=== PATIENT | female | born 1985 | race Hispanic/Latino ===

== ENCOUNTER 2025-05-20 12:56 | Emergency (ER) | payer BC, MEDICAID ==
[~2025-05-20] VITALS: Ht 160 cm; Wt 108.9 kg
[2025-05-20 13:00] VITALS: BP 121/58; PULSE 71; RESP 18; TEMP 98.2; O2SAT 98
--- NOTE | 2025-05-20 13:10 | ERN ---
ED Note History of Present Illness Stated Complaint: ABDOMINAL PAIN Chief Complaint: Abdominal Pain Time Seen by MD: 12:57 Dictation: PATIENT IS A 40-YEAR-OLD FEMALE COMING IN TODAY WITH RIGHT LOWER QUADRANT PAIN TENDERNESS ONSET WAS YESTERDAY. SHE HAS HAD NAUSEA VOMITING SEVERAL TIMES. NO FEVER NO FLANK PAIN NO CHANGE IN URINATION. SHE STATES SHE STILL HAS A APPENDIX IN HER GALLBLADDER. Allergies: Coded Allergies: No Known Drug Allergies (Unverified Allergy, Unknown, 05/20/25) Past Medical History Past Medical History: No Pertinent History Additional Past Medical Hx: denies pmhx Surgical History: Social History: ETOH RN Note Reviewed/Agreed w/PFSH: Yes Review of System Dictation CONSTITUTIONAL: NEGATIVE EXCEPT FOR HPI HEAD/FACE: NEGATIVE EXCEPT FOR HPI EENT: NEGATIVE EXCEPT FOR HPI RESPIRATORY: NEGATIVE EXCEPT FOR HPI GASTROINTESTINAL/ABDOMINAL: NEGATIVE EXCEPT FOR HPI RIGHT LOWER QUADRANT PAIN WITH NAUSEA VOMITING GENITOURINARY: NEGATIVE EXCEPT FOR HPI MUSCULOSKELETAL: NEGATIVE EXCEPT FOR HPI INTEGUMENTARY: NEGATIVE EXCEPT FOR HPI NEUROLOGICAL/PSYCH: NEGATIVE EXCEPT FOR HPI HEMATOLOGIC/LYMPHATIC: NEGATIVE EXCEPT FOR HPI ALL SYSTEMS NEGATIVE, EXCEPT NOTED ABOVE. 13 POINT REVIEW OF SYSTEMS ASSESSED AND ALL NEGATIVE EXCEPT FOR ABOVE. Initial Vital Sign VS Vital Signs Date Time Temp Pulse Resp B/P (MAP) Pulse Ox O2 Delivery O2 Flow Rate FiO2 05/20/25 12:57 98.2 71 18 121/58 98 Room Air 0 05/20/25 13:00 21 Physical Exam Dictation VITAL SIGNS REVIEWED GENERAL APPEARANCE: ALERT, ORIENTED X 3, MODERATE ACUTE DISTRESS, WELL DEVELOPED, NOURISHED. OBESITY HEAD AND FACE: NON-TRAUMATIC. EYES: PERRL, PINK CONJUNCTIVAS, EYELID NO TRAUMA, ANTERIOR CHAMBER WITH ARCUS SENILIS. EARS: PINNAS INTACT AND NO SIGNS OF TRAUMA OR ERYTHEMA EAR CANALS CLEAR AND NO DISCHARGE TM NO ERYTHEMA NOSE: NO DISCHARGE, NO BLEEDING. OROPHARYNX: MOUTH NORMAL, TONGUE PINK, PHARYNX CLEAR,NO ERYTHEMA, TONSILS NO EXUDATES, NO ABSCESSES NOTED, MUCOUS MEMBRANE MOIST NECK: SUPPLE, NON-TENDER, NO THYROMEGALY, NO MASSES, NO JVD, NO BRUITS BREAST:DEFERRED CHEST:NO TENDERNESS, NO CREPITUS, NO PARADOXICAL MOVEMENT, NO RETRACTIONS LUNGS:CLEAR, WELL-VENTILATED, SYMMETRIC, NO RALES, NO WHEEZING, NO RHONCHI, NO STRIDOR, GOOD BREATH SOUNDS BILATERALLY HEART: REGULAR RATE, REGULAR RHYTHM, NO MURMUR, NO GALLOPS VASCULAR: NO PERIPHERAL EDEMA, ABDOMEN: SOFT, POSITIVE BOWEL SOUNDS, NONDISTENDED, NO GUARDING, RIGHT LOWER QUADRANT PAIN THAT MCBURNEY'S WITH MILD REBOUND TENDERNESS. NEGATIVE CVAT BILATERALLY NEGATIVE KEATING'S SIGN RECTAL: DEFERRED GENITAL: DEFERRED NEUROLOGICAL: NORMAL SPEECH, MOTOR FUNCTION INTACT, SENSORY FUNCTION INTACT MUSCULOSKELETAL: NECK NONTENDER, FULL RANGE OF MOTION, BACK NONTENDER, FULL RANGE OF MOTION, EXTREMITIES: NONTENDER, FULL RANGE OF MOTION SKIN: COLOR PINK, DRY, NO TURGOR, NO RASH, NO LACERATIONS, NO ABRASIONS, NO CONTUSIONS. LYMPHATIC: DEFERRED Results (Laboratory/Radiology) Laboratory/Radiology Laboratory Tests Test 05/20/25 13:13 White Blood Count 11.7 K/uL (4.8-10.8) H Red Blood Count 4.27 MIL/uL (4.00-5.50) Hemoglobin 13.6 g/dL (12.0-16.0) Hematocrit 40.0 % (36-48) Mean Corpuscular Volume 93.7 fL (79-99) Mean Corpuscular Hemoglobin 31.9 pg (27.0-33.0) Mean Corpuscular Hemoglobin Concent 34.0 g/dL (32.0-36.0) Red Cell Distribution Width 11.6 % (11.0-15.5) Platelet Count 277 K/uL (130-400) Mean Platelet Volume 9.7 fL (7.5-10.5) Immature Granulocyte % (Auto) 0.3 % (0-1) Neutrophils (%) (Auto) 71.3 % (40.0-77.0) Lymphocytes (%) (Auto) 21.3 % (21.0-51.0) Monocytes (%) (Auto) 5.7 % (3.0-13.0) Eosinophils (%) (Auto) 1.2 % (0.0-8.0) Basophils (%) (Auto) 0.2 % (0.0-5.0) Neutrophils # (Auto) 8.3 K/uL (1.8-7.7) H Lymphocytes # (Auto) 2.5 K/uL (1.0-4.8) Monocytes # (Auto) 0.7 K/uL (0.1-1.0) Eosinophils # (Auto) 0.14 K/uL (0.00-0.70) Basophils # (Auto) 0.02 K/uL (0.00-0.20) Absolute Immature Granulocyte (auto 0.04 K/uL (0-1) Nucleated Red Blood Cells 0.0 % (0.0-0.19) Sodium Level 138 mmol/L (136-145) Potassium Level 3.7 mmol/L (3.5-5.1) Chloride Level 104 mmol/L (101-111) Carbon Dioxide Level 28 mmol/L (21-32) Blood Urea Nitrogen 8 mg/dL (7-18) Creatinine 0.6 mg/dL (0.5-1.0) Glomerular Filtration Rate Calc 116 mL/min (>90) Random Glucose 134 mg/dL (70-105) H Total Calcium 8.3 mg/dL (8.5-10.1) L Lipase 28 U/L (16-77) Serum Test, Qualitative NEGATIVE (NEGATIVE) ED Course ED Course Orders Procedure Category Date Status Time Cbc With Differential LAB 05/20/25 Complete 13:00 Urinalysis Profile LAB 05/20/25 Logged 13:00 0.9%Nacl 1000ml (Ns PHA 05/20/25 Complete 1000ml) 13:00 Morphine 2mg Syg PHA 05/20/25 Complete (Morphine 2mg Syg) 13:00 Ondansetron 4mg Inj PHA 05/20/25 Complete (Zofran 4mg Inj) 13:00 Lipase LAB 05/20/25 Complete 13:00 Basic Metabolic Panel LAB 05/20/25 Complete 13:00 Testing, LAB 05/20/25 Complete Serum Hcg 13:00 Us Abdominal Ruq\Ltd US 05/20/25 Logged 13:27 Current Medications Medications (Trade) Dose Ordered Sig/Sunny Route PRN Reason Start Time Stop Time Status Last Admin Dose Admin Morphine Sulfate (morPHINE 2MG SYG) 2 mg ONCE ONCE IVP 05/20/25 13:00 05/20/25 13:04 DC 05/20/25 13:36 Ondansetron HCl (zoFRAN 4MG INJ) 4 mg ONCE ONCE IVP 05/20/25 13:00 05/20/25 13:04 DC 05/20/25 13:36 Sodium Chloride 1,000 ml @ 0 mls/hr ONCE ONCE IV 05/20/25 13:00 05/20/25 13:04 DC 05/20/25 13:36 Vital Signs Date Time Temp Pulse Resp B/P (MAP) Pulse Ox O2 Delivery O2 Flow Rate FiO2 05/20/25 13:00 98.2 71 18 121/58 98 Room Air* 0 21 05/20/25 12:57 98.2 71 18 121/58 98 Room Air 0 1330/PATIENT NOW STATES THAT SHE WAS SEEN AT [facility] YESTERDAY AND DIAGNOSED WITH CHOLELITHIASIS. SHE STATES THE DOCTOR TOLD HER THAT SHE HAD MULTIPLE STONES HOWEVER THEY DID NOT REFER HER TO A SURGEON OR GIVE HER ANYTHING FOR PAIN. SHE SAYS SHE WASTED HER TIME AT [facility] BECAUSE THEY DID NOT PERFORM SURGERY AND THAT IS WHAT SHE WANTED. 1345/ 1345/PATIENT NOW STATES THAT SHE CAME OVER HERE BECAUSE SHE WANTED SURGERY. SHE DID NOT WANT US TO REPEAT ANY LABS OR IMAGING AND THAT THEY DID NOT OFFER HER SURGERY AT [facility] YESTERDAY. I EXPLAINED TO HER THAT I WOULD NOT BE HAVING HER ADMITTED TO THE HOSPITAL OR CALL THE SURGEON UNLESS I KNEW THAT WAS CHOLEDOCHOLITHIASIS, CHOLECYSTITIS. SHE SAID IF YOUR NOT GOING TO JUST SEND ME TO SURGERY THEN I WANT TO SIGN OUT AGAINST MEDICAL ADVICE. SAW RN WAS AT BEDSIDE AND ALL THIS WAS EXPLAINED TO PATIENT IN [place]. AGREED TO SIGN OUT AGAINST MEDICAL ADVICE Medical Decision Making MDM MEDICAL DECISION-MAKING BASED ON BASIC LABS AND ULTRASOUND OF RIGHT UPPER QUADRANT. PATIENT HAS BEEN SEEN AT [facility] YESTERDAY FOR THE SAME COMPLAINT AND WAS DIAGNOSED WITH CHOLELITHIASIS PATIENT CAME TO [facility] THIS MORNING WITH ANTICIPATION OF HAVING SURGERY DONE BASED ON HER VISIT TO [facility] YESTERDAY. WHEN I EXPLAINED THAT I WOULD NOT BE ACTING ON ANY OF THE LABS OR ULTRASOUND FROM [facility] AND THAT THIS NEEDED REPEATED SHE SAID SHE WANTED TO SIGN OUT AGAINST MEDICAL ADVICE PATIENT IS ALERT AND ORIENTED X4 SPEECH IS CLEAR. DX & DISP Disposition: AMA Departure Impression: Primary Impression: Right upper quadrant pain Condition: Stable Referrals: FAN TAVERAS MD (PCP) Time of Disposition: 13:49 I have reviewed the case, and I agree with, Diagnosis and Plan FOREIGN WEBSTER NP May 20, 2025 13:10
[2025-05-20 13:24] LABS: IMMATURE GRANULOCYTE ABSOLUTE 0.04 K/uL (0-1); NUCLEATED RED BLOOD CELLS 0.0 % (0.0-0.19); PLATELET COUNT (AUTO) 277 K/uL (130-400); RED BLOOD CELL COUNT(AUTO) 4.27 MIL/uL (4.00-5.50); RED CELL DISTRIBUTION WIDTH 11.6 % (11.0-15.5); WHITE BLOOD COUNT (AUTO) 11.7 K/uL (4.8-10.8)
[2025-05-20 13:29] LABS: CREATININE 0.6 mg/dL (0.5-1.0); GLOMERULAR FILTR. RATE CALC 116.0 mL/min (>90); GLUCOSE,RANDOM 134.0 mg/dL (70-105); SODIUM SERUM 138.0 mmol/L (136-145); UREA NITROGEN, BLOOD 8.0 mg/dL (7-18)
[2025-05-20] MEDS: 0.9%NACL 1000ML 1,000 ML IV ONE (13:36)
--- NOTE | 2025-05-20 13:48 | NUR ---
PT VOICED THAT SHE DID NOT TELL FOREIGN PALACIOS SHE HAD [place]IS[place] [facility] [place] AND THAT SHE WAS DX WITH GALL STONES BUT ER MD TOLD HER THE CONDITION DID NOT WARRANT IMMEDIATE SURGERY. PRIMARY NURSE NOTIFIED FOREIGN PALACIOS OF WHAT PT VOICED. FOREIGN VISITED PT AND EDUCATED THAT SIMILAR TESTS WOULD BE DONE TO DETERMINE THE CAUSE OF PAIN. LATER PT VOICED TO PRIMARY NURSE AND FOREIGN PALACIOS THAT DSHE WOULD LIKE TO REFUSE TREATMENT AND ALL PROCEDURES BECAUSE THEY WERE GOING TO DX WITH SAME CONDITION AND STATES WILL VISIT PCP TO SEE IF A SURGERY CAN BE SCHEDULED OR SEEK OTHER TX'S.
== END 2025-05-20 13:50 | disposition left against medical advice (07) ==
LOC: EDH 12:56
DX: R10.11 Right upper quadrant pain (principal); Z98.890 Other specified postprocedural states
CPT/HCPCS: 36415; 80048; 83690; 84703; 85025; 99283; J2270; J2405; J7030